=== PATIENT | female | born 1995 | race African-American/Black ===

== ENCOUNTER 2018-05-14 16:51 | Emergency (ER) | payer OTHER ==
[~2018-05-14] VITALS: Ht 160 cm; Wt 54.4 kg
[2018-05-14 17:45] VITALS: BP 112/69
== END 2018-05-14 17:50 | disposition left against medical advice (07) ==
LOC: ER 16:51
DX: M54.6 Pain in thoracic spine (principal); M54.2 Cervicalgia; M25.551 Pain in right hip; F17.210 Nicotine dependence, cigarettes, uncomplicated; V89.2XXA Person injured in unspecified motor-vehicle accident, traffic, initial encounter; Y92.89 Other specified places as the place of occurrence of the external cause; Y93.89 Activity, other specified; Y99.8 Other external cause status

== ENCOUNTER 2018-05-30 17:21 | Emergency (ER) | payer OTHER ==
[~2018-05-30] VITALS: Ht 160 cm; Wt 54.4 kg
[2018-05-30 17:51] LABS: URINE BILIRUBIN NEGATIVE (Negative); URINE BLOOD NEGATIVE (Negative); URINE CLARITY CLEAR; URINE COLOR YELLOW; URINE GLUCOSE-RANDOM* NEGATIVE (Negative); URINE KETONES NEGATIVE (Negative); URINE LEUKOCYTES-REFLEX NEGATIVE (Negative); URINE NITRITE-REFLEX NEGATIVE (Negative); URINE PROTEIN (DIPSTICK) NEGATIVE (Negative); URINE SPECIFIC GRAVITY 1.015 (1.005-1.035); URINE UROBILINOGEN 0.2 E.U./dl (0.2-1.0)
[2018-05-30] MEDS ORDERED: NAPROSYN500 MG PO (18:53)
[2018-05-30] MEDS ORDERED: BUTALB-APAP-CA1 EACH PO (19:43)
[2018-05-30 20:00] VITALS: BP 122/86
== END 2018-05-30 20:02 | disposition home or self-care (01) ==
LOC: ER 17:21
PROVIDERS: Physician Assistant
DX: S06.0X0A Concussion without loss of consciousness, initial encounter (principal); V89.2XXA Person injured in unspecified motor-vehicle accident, traffic, initial encounter; Y93.89 Activity, other specified; Y92.89 Other specified places as the place of occurrence of the external cause; Y99.8 Other external cause status